=== PATIENT | male | born 1940 | race Caucasian/White ===

== ENCOUNTER → 2021-07-06 14:28 | Outpatient (BNVA) | payer MEDICARE, SELFPAY | PROVIDERS: Family Provider Electrodiagnostic Medicine; Visit Provider Registered Nurse Neonatal Intensive Care | DX: Z20.822 Contact with and (suspected) exposure to COVID-19 (principal) | CPT/HCPCS: 87635 ==

== ENCOUNTER → 2023-06-30 08:41 | Outpatient (BNVA) | payer MEDICARE, SELFPAY | PROVIDERS: Family Provider Electrodiagnostic Medicine; PCP Electrodiagnostic Medicine; Visit Provider Nurse Practitioner Family | DX: L50.8 Other urticaria (principal); L57.0 Actinic keratosis; L57.8 Other skin changes due to chronic exposure to nonionizing radiation; D22.4 Melanocytic nevi of scalp and neck; L81.4 Other melanin hyperpigmentation; L82.1 Other seborrheic keratosis; L50.3 Dermatographic urticaria | CPT/HCPCS: 17000; 99204 ==

== ENCOUNTER 2024-08-02 13:20 | Outpatient (CLI) | payer OTHER, SELFPAY ==
--- NOTE | 2024-08-02 13:27 | CT_ITS ---
WS: [id number] CT chest wo con [id number] HISTORY: COPD TECHNIQUE: Axial imaging performed through the thorax. Coronal and sagittal reformats are submitted. All CT scans at [facility] use at least one of these dose optimization techniques: automated exposure control; mA and/or kV adjustment per patient size (includes targeted exams where dose is matched to clinical indication); or iterative reconstruction. CONTRAST: None DLP: 468.38 mGy.cm COMPARISON: 01/25/2011 Lungs and central airway: Poor inspiration. Poor inspiration resulting in crowding of the lung markings. There is a very tiny pleural nodule at the LEFT lung base. No pulmonary mass or nodule. No pneumonia. No endobronchial lesions. No bronchiectasis identified today. Pleura: Normal. No pleural effusion. Heart and pericardium: Mild cardiomegaly. Mediastinum and jose f: No adenopathy identified on this unenhanced exam. There are small mediastinal lymph nodes. Heavily calcified lymph node at the LEFT hilum. Vessels: Mild atherosclerosis aorta. Slightly ectatic aorta. Mildly prominent pulmonary artery. Chest wall and lower neck: No soft tissue masses. Upper abdomen: Prior cholecystectomy. No adrenal mass. Osseous structures: Moderate thoracic spondylosis. No destructive bone lesions. CT/CT chest wo con [id number] IMPRESSION: 1. No pulmonary mass or nodule. No pneumonia. 2. No mediastinal or hilar lymphadenopathy identified on this unenhanced exam. Hilar evaluation is limited without contrast. 3. Prior cholecystectomy. 4. Mild emphysema.
== END 2024-08-02 13:21 | disposition home or self-care (01) ==
PROVIDERS: Family Provider Electrodiagnostic Medicine; PCP Electrodiagnostic Medicine; Visit Provider Electrodiagnostic Medicine
DX: J44.9 Chronic obstructive pulmonary disease, unspecified (principal); Z90.49 Acquired absence of other specified parts of digestive tract; J43.9 Emphysema, unspecified; R91.8 Other nonspecific abnormal finding of lung field; I51.7 Cardiomegaly; I89.8 Other specified noninfective disorders of lymphatic vessels and lymph nodes; I70.0 Atherosclerosis of aorta; I77.819 Aortic ectasia, unspecified site; R93.5 Abnormal findings on diagnostic imaging of other abdominal regions, including retroperitoneum; M47.894 Other spondylosis, thoracic region
CPT/HCPCS: 71250